=== PATIENT | male | born 2000 | race African-American/Black ===

== ENCOUNTER 2018-04-21 19:28 | Emergency (ER) | payer OTHER ==
[2018-04-21] MEDS: NAPROXEN 250 MG TAB PO (21:41)
== END 2018-04-21 22:34 | disposition home or self-care (01) ==
LOC: M ED 19:28
DX: M79.604 Pain in right leg (principal); W19.XXXA Unspecified fall, initial encounter; Y92.098 Other place in other non-institutional residence as the place of occurrence of the external cause; Z87.81 Personal history of (healed) traumatic fracture
CPT/HCPCS: 73552

== ENCOUNTER 2018-05-17 20:38 | Emergency (ER) | payer OTHER ==
[2018-05-17] MEDS: KETOROLAC 60 MG/2 ML VIAL (J1885) IM (21:44)
[2018-05-17 21:53] LABS: HEMATOCRIT 41.1 % (42.0-52.0); HEMOGLOBIN 13.8 g/dl (13.5-17.5); MEAN CORPUSCULAR HEMOGLOBIN 29.4 pg (27.0-33.0); MEAN CORPUSCULAR HGB CONC 33.6 g/dl (32.0-36.5); MEAN CORPUSCULAR VOLUME 87.4 fl (80.0-96.0); PLATELET COUNT, AUTOMATED 162 10^3/uL (150-450); RED CELL DISTRIBUTION WIDTH 12.9 % (11.5-14.5); WHITE BLOOD COUNT 6.1 10^3/uL (4.0-10.0)
[2018-05-17 22:26] LABS: ANION GAP 7 MEQ/L (8-16); BLOOD UREA NITROGEN 18 MG/DL (7-18); CALCIUM LEVEL 8.7 MG/DL (8.5-10.1); CARBON DIOXIDE LEVEL 27 MEQ/L (21-32); CHLORIDE LEVEL 109 MEQ/L (98-107); CPK CREATINE PHOSPHOKINASE 279 U/L (39-308); GLUCOSE, FASTING 107 MG/DL (70-100); MB/CK RELATIVE INDEX 0.39 (< OR =4); POTASSIUM SERUM 3.6 MEQ/L (3.5-5.1); SODIUM LEVEL 143 MEQ/L (136-145); TROPONIN I < 0.02 NG/ML (< 0.10)
== END 2018-05-17 23:05 | disposition home or self-care (01) ==
LOC: M ED 20:38
DX: R07.89 Other chest pain (principal); R06.02 Shortness of breath; I10 Essential (primary) hypertension; J30.2 Other seasonal allergic rhinitis; F17.210 Nicotine dependence, cigarettes, uncomplicated
CPT/HCPCS: J1885

== ENCOUNTER 2018-06-14 13:16 | Emergency (ER) | payer OTHER ==
[2018-06-14] MEDS ORDERED: ACETAMINOPHEN 325 MG TAB As Ordered (13:39)
[2018-06-14] MEDS: ACETAMINOPHEN 325 MG TAB PO (13:40)
[2018-06-14] MEDS: OSELTAMIVIR PHOSPHATE 75 MG CAP (TAMIFLU) PO (14:43)
== END 2018-06-14 15:07 | disposition home or self-care (01) ==
LOC: M ED 13:16
DX: B34.9 Viral infection, unspecified (principal)
CPT/HCPCS: 99284

== ENCOUNTER 2018-09-04 22:35 | Emergency (ER) | payer OTHER ==
[~2018-09-04] VITALS: Ht 175.3 cm; Wt 98.4 kg
[~2018-09-04 22:35] MED LIST: IBUP-1114 PO; NAPR-50 PO; OSEL75CA PO; ZOFR4TAB14 PO
[2018-09-04] MEDS ORDERED: ONDANSETRON 4 MG ORAL DISINTEGRATING TAB (Q0162 PER 1MG) PO ONE (23:00)
[2018-09-04] MEDS ORDERED: ACETAMINOPHEN 325 MG TAB PO ONE (23:00)
[2018-09-04] MEDS ORDERED: KETOROLAC 60 MG/2 ML VIAL (J1885) IM ONE (23:00)
[2018-09-05] MEDS ORDERED: ONDA4TAB6 PO (00:07)
[2018-09-05 00:18] VITALS: BP 118/72
== END 2018-09-05 00:19 | disposition home or self-care (01) ==
LOC: M ED 22:35
DX: R51 Headache (principal); Z72.820 Sleep deprivation; I10 Essential (primary) hypertension; F17.210 Nicotine dependence, cigarettes, uncomplicated
CPT/HCPCS: 96372; 99283; J1885; Q0162

== ENCOUNTER 2018-09-27 21:49 | Emergency (ER) | payer OTHER ==
[~2018-09-27] VITALS: Ht 175.3 cm; Wt 100.0 kg
[~2018-09-27 21:49] MED LIST changes: +BIKT1TAB OR; +ONDA4TAB6 PO
[2018-09-27] MEDS ORDERED: ACETAMINOPHEN 325 MG TAB PO ONE (22:30)
[2018-09-27] MEDS ORDERED: ONDANSETRON 4 MG ORAL DISINTEGRATING TAB (Q0162 PER 1MG) PO ONE (22:30)
[2018-09-27] MEDS ORDERED: diphenhydrAMINE 50 MG CAP PO ONE (22:30)
[2018-09-27] MEDS ORDERED: ONDA4TAB6 PO (23:54)
[2018-09-28 00:26] VITALS: BP 121/65
== END 2018-09-28 00:26 | disposition home or self-care (01) ==
LOC: M ED 21:49
DX: R51 Headache (principal); Z79.899 Other long term (current) drug therapy
CPT/HCPCS: 99283; Q0162

== ENCOUNTER 2019-01-06 15:10 | Emergency (ER) | payer OTHER ==
[~2019-01-06] VITALS: Ht 175.3 cm; Wt 108.2 kg
[~2019-01-06 15:10] MED LIST changes: -NAPR-50 PO; +NAPR-837 PO
--- NOTE | 2019-01-06 17:57 | REP ---
Clinical: Trauma/fall . Comparison: None . Findings: The ventricles, sulci, and cisterns are normal in position and appearance. Clarke-white differentiation is maintained. No acute intracranial hemorrhage, mass/mass effect, pathology or trauma/injury. No evidence for acute infarction. No extra-axial fluid collection. Calvarium is intact. Paranasal sinuses and mastoid air cells are clear. Impression: Normal noncontrast head CT. No evidence for acute intracranial pathology or trauma/injury. Electronically Signed by Patrick Martinez MD 01/06/2019 05:49 P
--- NOTE | 2019-01-06 17:58 | REP ---
Clinical: Trauma/fall . Technique: Axial noncontrast images from the skull base to the thoracic inlet with coronal and sagittal re-formations Findings: Normal alignment is maintained. Cervical vertebral bodies including transverse processes and spinous processes are intact and there is no evidence for acute fracture / compression injury or subluxation. Spinal canal is patent. Posterior elements are intact. Paravertebral soft tissues are normal. Impression: Normal noncontrast cervical spine CT. No evidence for acute pathology or trauma/injury. Electronically Signed by Patrick Martinez MD 01/06/2019 05:50 P
[2019-01-06] MEDS ORDERED: IBUP-1022 PO (18:05)
[2019-01-06] MEDS ORDERED: CYCL10TA PO (18:05)
[2019-01-06 18:18] VITALS: BP 139/77
== END 2019-01-06 18:19 | disposition home or self-care (01) ==
LOC: M ED 15:10
DX: S00.03XA Contusion of scalp, initial encounter (principal); S16.1XXA Strain of muscle, fascia and tendon at neck level, initial encounter; W06.XXXA Fall from bed, initial encounter; Y92.013 Bedroom of single-family (private) house as the place of occurrence of the external cause